=== PATIENT | female | born 1970 | race Caucasian/White ===

== ENCOUNTER 2017-10-12 08:37 | Emergency (ER) | payer MEDICARE ==
[~2017-10-12] VITALS: Ht 152.4 cm; Wt 78.5 kg
[~2017-10-12 08:37] MED LIST: CYAN250T6 PO; DOCO100C PO; DULO30CA2 PO; FEXO180T PO; FLUT1DIS29 IH; FOLI1TAB16 PO; GUMMY VITAMIN PO; HYDR10TA12 PO; HYDR28.33 TP; IPRA14.7; LAMO100T2; LEVA15HF5 IH; LORA1TAB82 PO; MIRT15TA3 PO; MONT10TA22 PO; OLAN10TA3 PO; OMEP20CA10 PO; ONDA8TAB9; OXYC1TAB8; PRED5TAB48 PO; PREN1TAB59 PO; QUET25TA PO; TRAM50TA2 PO; TRIA10PO3 MC; [UNRECOGNIZED DRUG - OTHER] PO
--- NOTE | 2017-10-12 08:37 | NUR ---
YAHIR FROM HOME WITH ONGOING CARDIAC ARREST, PATIENT WAS INTUBATED BY EMS. NO PULSE NOR RESPIRATION NOTED UPON ARRIVAL. TRANSFERRED PT TO ER BED 5 AND CONNECTED TO TELE MONITOR. MD COLLINS CONTINUE WITH THE CODE. PATIENT WAS ANNOUNCED BY MD COLLINS @[id number].
--- NOTE | 2017-10-12 08:48 | NUR ---
PATIENT'S FIANCE AT BEDSIDE.
--- NOTE | 2017-10-12 09:15 | NUR ---
[facility]. REPORT GIVEN, REF # [id number]
--- NOTE | 2017-10-12 09:52 | NUR ---
Social service consult requested by Jonny FAY, Charge Nurse, for a . Pt is a 46 yr. old female (bed 5) who was admitted to [facility] for ongoing cardiac arrest. Pt had no pulse nor respiration upon arrival. AGGIE met with pts Freddy ferreira ([phone]) at pts bedside. Present in the room was Freddy's brother, Terrell Elliott ([phone]). Pts hanna appeared distraught and cried when discussing events that led to his fiance coming to the hospital. Freddy stated, that pt collapsed in the living room after showering. Pts hanna appeared confused as to the cause of pts sudden . AGGIE offered family support by inquiring how SW could be of assistance. Freddy (with the help of his brother) asked for low cost cremation/burial resources as he is on a fixed income as well as information about the [employer]. Roland ferreira receives $1000/month. AGGIE provided Freddy with the following resources: [employer] (provides , burial and cremation services), [place] [employer] (informational guide for the [place] area), [employer] (limited fund services) and [employer] (low cost cremation services) in [place]. Roland ferreira was in agreement with referrals. SW will remain available if family needs additional resources.
--- NOTE | 2017-10-12 10:03 | NUR ---
DR KELSEY PAGED AGAIN
--- NOTE | 2017-10-12 11:34 | NUR ---
REMAINS TRANSFFERED TO [facility]. [place] [facility] [facility] PROVIDED. SO AWARE.
[2017-10-12 11:38] VITALS: BP 0/0
== END 2017-10-12 11:39 | disposition expired ==
LOC: ER 08:39
DX: I46.9 Cardiac arrest, cause unspecified (principal); J45.909 Unspecified asthma, uncomplicated; Q90.9 Down syndrome, unspecified; Z98.84 Bariatric surgery status; K21.9 Gastro-esophageal reflux disease without esophagitis; F41.9 Anxiety disorder, unspecified; Z90.49 Acquired absence of other specified parts of digestive tract; Z88.6 Allergy status to analgesic agent; Z88.5 Allergy status to narcotic agent; Z91.010 Allergy to peanuts; Z91.013 Allergy to seafood